=== PATIENT | female | born 2005 | race Caucasian/White ===

== ENCOUNTER 2023-01-06 14:08 | Emergency (ER) | payer BC, SELFPAY ==
[2023-01-06 14:11] VITALS: BP 135/84; PULSE 119; RESP 22; TEMP 36.6; O2SAT 100; BMI 18.8
[2023-01-06] MEDS: 0.9% Normal Saline 1,000 ML 1000 ML IV (15:22)
[2023-01-06] MEDS: Metoclopramide 10 MG/2 ML Vial IV (15:22)
[2023-01-06 15:25] VITALS: BP 99/59; PULSE 92; RESP 18; O2SAT 99
[2023-01-06 15:27] LABS: Absolute Lymphocyte Count 1.43 X10^3/uL (0.83-4.51); Absolute Neutrophil Count 3.2 X10^3/uL (2.0-7.7); Basophil# 0.04 X10^3/uL; Basophil% 0.8 % (0-1); Eosinophil# 0.04 X10^3/uL; Eosinophils% 0.8 % (0-5); Hematocrit 40.3 % (37-47); Hemoglobin 13.8 g/dL (12.0-15.0); Lymphocyte # 1.43 X10^3/ul (0.83-4.51); Lymphocyte % 27.4 % (19-41); Mean Corp Hgb Conc 34.2 g/dL (32-36); Mean Corpuscular Hgb 33.1 pg (27.0-32.0); Mean Corpuscular Volume 96.6 fL (81-99); Mean Platelet Vol. 9.7 fl (6.2-12.0); Monocyte% 9.6 % (0-10); NRBC Flagged by Analyzer 0 % (0-5); Neutrophil # 3.18 X10^3/uL (2.7-7.7); Platelet Count 301 K/mm3 (150-450); RBC Distribution Width CV 11.8 % (11.6-14.6); RBC Distribution Width SD 42.2 fl (35.1-43.9); Red Blood Count 4.17 M/mm3 (4.2-5.4); White Blood Count 5.2 K/mm3 (4.4-11.0)
--- NOTE | 2023-01-06 15:27 | ED.RN ---
PATIENT HAD SYNCOPAL EPISODE WHILE THIS RN AT BEDSIDE. VITAL SIGNS STABLE. DR. BRYANT AWARE.
--- NOTE | 2023-01-06 15:54 | EDS_ITS ---
HPI HPI - GI History of Present Illness Chief Complaint: Nausea/Vomiting/Diarrhea Narrative Narrative: 17-year-old female presented with nausea, vomiting, diarrhea she states she was initially seen a week ago and given Phenergan for her nausea which she states di d help however when she ran out she started vomiting again. She feels like she is very dehydrated. She states she had an episode where she almost blacked out today which. She is not really having abdominal pain. She has not had a fever that she knows of but is not checking her temperature. She does not have a cough or shortness of breath. She believes something is going around campus. [facility] Medical History Anxiety Depression Home Medications metoclopramide HCl 10 mg tablet (Reglan) 10 mg PO Q8H PRN PRN nausea and vomiting #20 tabs 01/06/23 [Rx Last Taken Unknown] Allergy/AdvReac Type Severity Reaction Status Date / Time salicylates Allergy Other Verified 01/06/23 14:11 Social History Smoking Status: Never smoker ROS ROS ED Constitutional Constitutional ED: Denies chills or fever(s) ENT ENT ED: Denies rhinorrhea or sore throat Cardiovascular Cardiovascular: Denies chest pain Gastrointestinal Gastrointestinal: Reports diarrhea, nausea and vomiting Genitourinary Genitourinary ED: Denies dysuria or hematuria Musculoskeletal Musculoskeletal: Denies arthralgias Integumentary Denies abscess or Abrasions Neurologic Neurologic: Denies headache(s) Psychiatric Psychiatric: Denies anxiety or depression Endocrine Endocrinology: Denies polydipsia or polyphagia EXAM Physical Exam Const Vital Signs: 01/06/23 14:11 01/06/23 15:25 Temperature 98 F Temperature Source Temporal Pulse Rate 119 H 92 Respiratory Rate 22 H 18 Blood Pressure 135/84 H 99/59 L Blood Pressure Mean 101 72 Pulse Ox 100 99 Oxygen Delivery Method Room Air Positive well nourished General Appearance ED: NAD; Negative for pallor HEENT Reports moist mucous membranes normocephalic Resp normal respiratory effort and clear to auscultation bilaterally Auscultation: Negative for rales, rhonchi or wheezes Cardio regular rate and regular rhythm GI non-tender Extremity General Extremety ED: Yes edema General Extremity: edema Neuro CN's II-XII intact bilaterally Sensorium / Orientation: alert Motor Exam: strength 5/5 throughout Psych mental status grossly normal Skin no wounds General Skin Exam: Negative for jaundice or pallor MDM MDM MDM Narrative Medical decision making narrative: Patient presenting with nausea, vomiting, diarrhea. Is ongoing for a week. She states that there is a bug daughter on campus she thinks she got it when she is having trouble kicking it. She states she felt lightheaded before she came in. I was going to do orthostatics but the nursing staff told me she had an episode where she started to blackout in the room and so therefore I just gave her IV fluids. She was given 2 L of normal saline. CBC was obtained to assess white blood cell count, hemoglobin, platelets, differential. CMP to assess liver function, renal function, electrolytes, glucose, anion gap. EKG to assess for dysrhythmia. High-sensitivity troponin was also obtained. This was 4. Patient was given Reglan for her nausea. On reevaluation at 4:40 PM she states she feels much better. Her nausea is improved. Patient ambulated to the bathroom without any difficulty. At this point she stable for discharge. Impression: 1. Nausea/vomiting 2. Diarrhea 3. Near syncope 4. Dehydration Lab Data Attestation: I reviewed the patient's lab results. Labs: Laboratory Results - last 24 hr 01/06/23 01/06/23 01/06/23 15:15 15:15 15:15 WBC 5.2 RBC 4.17 L Hgb 13.8 Hct 40.3 MCV 96.6 MCH 33.1 H MCHC 34.2 RDW Std Deviation 42.2 RDW Coeff of Joanne 11.8 Plt Count 301 MPV 9.7 Immature Gran % (Auto) 0.400 Neut % (Auto) 61.0 Lymph % (Auto) 27.4 [place] % (Auto) 9.6 Eos % (Auto) 0.8 Baso % (Auto) 0.8 Absolute Neuts (auto) 3.2 Absolute Lymphs (auto) 1.43 Nucleated RBC % 0 Sodium 138 Potassium 3.8 Chloride 104 Carbon Dioxide 29.0 Anion Gap 5 BUN 17 Creatinine 0.71 Estim Creat Clear Calc 90.74 Est GFR (MDRD) Af Amer 135 Est GFR (MDRD) Non-Af 112 BUN/Creatinine Ratio 23.9 H Glucose 116 H Calcium 9.4 Total Bilirubin 0.30 AST 16 ALT 22 Alkaline Phosphatase 58 Troponin I High Sens 4 Total Protein 7.9 Albumin 4.4 Globulin 3.5 Albumin/Globulin Ratio 1.3 Serum , Qual NEGATIVE Discharge Plan Triage Chief Complaint: Nausea/Vomiting/Diarrhea ED Provider: Ross Johnson Dx/Rx/DC Orders Instructions: ED Gastroenteritis, Viral (Adult) Prescriptions: New metoclopramide HCl [Reglan] 10 mg tablet 10 mg PO Q8H PRN PRN (Reason: nausea and vomiting) Qty: 20 0RF Primary Care Provider: Care Physician,No Primary Referrals: Norma Vyas MD [Med Staff - Principal [employer]] - 3-5 Days Care Physician,No Primary [Primary Care Provider] - Disposition Disposition: Home, Self Care
[2023-01-06 15:57] LABS: ALB/GLOB Ratio 1.3 RATIO (0.9-2.4); AST(SGOT) 16 U/L (15-37); Alanine Aminotransfer ALT/SGPT 22 U/L (13-56); Albumin, Serum 4.4 g/dL (3.2-5.0); Alkaline Phosphatase 58 U/L (45-117); Anion Gap 5 (5-15); BUN 17 mg/dL (7-18); BUN/Creat Ratio 23.9 RATIO (10-20); Calcium,Total 9.4 mg/dL (8.5-10.1); Chloride 104 mmol/L (98-107); Creatinine, Serum 0.71 mg/dL (0.55-1.02); EST Glomerular Filtration Rate 112 mL/min (>60); Est Glom Filt Rate - Afr Amer 135 mL/min (>60); Estimated Creatinine Clearance 90.74 ml/min; Globulin 3.5 g/dL (2.2-4.2); Glucose 116 mg/dL (74-106); Internal QC Validated? YES +Cl - CLEAR BKGD; Potassium 3.8 mmol/L (3.5-5.1); Pregnancy, Serum, hCG Quali. NEGATIVE Negative; Protein, Total 7.9 g/dL (6.4-8.2); Sodium Level 138 mmol/L (136-145); Troponin-I HS 4 pg/mL (3.0-54.0)
[2023-01-06 16:03] LABS: Bacteria 0 SEEN /hpf (None Seen); Mucous, Urine 0 SEEN /hpf (<or=2+); Red Blood Cells-Urine 0 SEEN /hpf (0-5)
[2023-01-06 16:11] LABS: Color, Urine Yellow (Yellow); Glucose, Dipstick Normal (Normal); Ketone-Dipstick 15 mg/dl (Negative); Leukocyte Esterase-Dipstick 25 /ul (Negative); Nitrite-Dipstick Negative (Negative); Occult Blood-Urine 10 /ul (Negative); Protein-Dipstick 30 mg/dl (Negative); Urine Bilirubin Dipstick Negative (Negative); Urine Clarity Sl. Cloudy (Clear); Urine Urobilinogen Normal (Normal)
[2023-01-06] MEDS: 0.9% Normal Saline 1,000 ML 999 ML IV (16:19)
[2023-01-06 16:49] LABS: Squamous Epithelial Cells - UA 0-5 SEEN /hpf (5-10); White Blood Cells 0-5 SEEN /hpf (0-5)
[2023-01-06 17:12] VITALS: PULSE 84; RESP 16
== END 2023-01-06 17:14 | disposition home or self-care (01) ==
PROVIDERS: Emergency Provider Student in an Organized Health Care Education/Training Program; Visit Provider Student in an Organized Health Care Education/Training Program
DX: R11.2 Nausea with vomiting, unspecified (principal); E86.0 Dehydration; R55 Syncope and collapse; R19.7 Diarrhea, unspecified
CPT/HCPCS: 80053; 81001; 84484; 84703; 85025; 93005; 96361; 96374; 99283; J7030; A4216